=== PATIENT | male | born 2000 | race Caucasian/White ===

== ENCOUNTER 2018-05-21 08:36 | Emergency (ER) | payer OTHER ==
[2018-05-21] MEDS ORDERED: TDAP ADULT 0.5 ML INJ (BOOSTRIX) IM ONE (09:57)
--- NOTE | 2018-05-21 10:00 | EDPHY ---
H & P Smoking Status: Never smoked Time Seen by Provider: 05/21/18 08:55 HPI/ROS: CHIEF COMPLAINT: Right index finger injury HISTORY OF PRESENT ILLNESS: 18-year-old male presents to the emergency department with a skin avulsion to the right index finger. The patient was at work and accidentally cut his right index finger with a knife. He is left-hand dominant. Unsure of his last tetanus shot. Denies any other trauma or injury. The incident happened at 8 o'clock this morning. ROS: Denies numbness or tingling in his fingers, retained foreign body or injury to the other fingers. (Chapis Benjamin) Past Medical/Surgical History: Negative (Chapis Benjamin) Social History: Single (Chapis Benjamin) Physical Exam: On examination, the patient has a skin avulsion to the right index finger that extends into the nail. It measures approximately 1.5 cm in diameter. There is active bleeding noted. It does not extend into the D IP joint. No visible bony injury. Full range of motion of his right index finger. The other fingers do not appear injured. Normal sensation to light touch with normal 2 point discrimination. Strong radial pulse at the right wrist. (Chapis Benjamin) Constitutional: Initial Vital Signs Temperature (C) 36.8 C 05/21/18 08:38 Heart Rate 68 05/21/18 08:38 Respiratory Rate 16 05/21/18 08:38 Blood Pressure 140/79 H 05/21/18 08:38 O2 Sat (%) 98 05/21/18 08:38 O2 Delivery Mode Room Air Allergies/Adverse Reactions: No Known Allergies Allergy (Unverified 05/21/18 08:40) Home Medications: Medication Instructions Recorded NK [No Known Home Meds] 05/21/18 MDM/Departure - MDM Procedures: Verbal consent was obtained from the patient. The 1.5 cm skin avulsion on the right index finger was anesthetized using digital block using 1% lidocaine without epinephrine and 0.5% bupivacaine without epinephrine. The wound was irrigated with saline, draped and explored to its base with a gloved finger. There were no deep structures involved. No tendon injury was identified. No sutures required. Surgical foam and tube gauze dressing applied. The wound repair was simple. The procedure was performed by myself. (Chapis Benjamin) Medications Given: Discontinued Medications Diphtheria/Tetanus/Acell Pertussis (Boostrix) 0.5 ml IM .ONCE ONE Stop: 05/21/18 09:58 Last Admin: 05/21/18 10:00 Dose: 0.5 ml ED Course/Re-evaluation: The patient's tetanus shot was updated. X-rays of the right index finger reveal no fractures. Patient was given wound care precautions. See procedure note. (Chapis Benjamin) I did not see this patient while he was in the emergency department. However his care was discussed with the PA while the patient was in the department. I agree with treatment plan and management (Philipp Arevalo) - Depart Disposition: Home, Routine, Self-Care Clinical Impression: Skin avulsion right index finger Condition: Good Instructions: Skin Avulsion (ED), Acute Wounds (ED) Additional Instructions: Keep wound dry, clean and protected. Ibuprofen 600 mg every 8 hr as needed for pain. Your tetanus shot was updated today in the emergency department. Work Related Injury: Date of Injury (if different from Date of Service): 05/21/2018 Your work restrictions, if any, last only until the next business day. Formal evaluation for work restrictions beyond one day must be arranged through your employer's workman's compensation provider. Restrictions are noted below: xReturn to work on your next scheduled shift. Referrals: Work Comp Ref/Restrictions [Outside] - As per Instructions
[2018-05-21 10:42] VITALS: BP 128/66
== END 2018-05-21 10:41 | disposition home or self-care (01) ==
PROC: 0HQFXZZ Repair Right Hand Skin, External Approach (ICD-10-PCS; principal; 2018-05-21)
DX: S61.210S Laceration without foreign body of right index finger without damage to nail, sequela (principal); Z23 Encounter for immunization; W26.0XXA Contact with knife, initial encounter; Y92.9 Unspecified place or not applicable